=== PATIENT | female | born 1960 | race African-American/Black ===

== ENCOUNTER → 2016-08-28 | Outpatient (CLI) | payer BC ==
[~2016-08-28] MED LIST: ALPRAZOLAM PO; ANTIVERT PO; MAXZIDE 75/50 T1 TAB PO
--- NOTE | ~2016-08-28 | MY11 ---
[facility] A Service of [facility] RADIOLOGY TEXT RESULTS PATIENT: ALISSON DAVIDSON LOCATION: [facility] : 60 UNIT #: [id number] AGE: [address]: Yajaira Vo MD SEX: F ORDER DR: [id number] [address] [address] [id number] O MR#: [id number] #: [id number] NAME: ALISSON DAVIDSON : 1960 SEX: F STUDY DATE/TIME: 08/28/2016 14:20 UNIT: [facility] ROOM: STUDY DESCRIPTION: MY Mammogram Screening Dig Ryan Attending Physician: Yajaira Vo M.D. Referring Physician: Yajaira Vo M.D. Ordering Physician: Yajaira Vo M.D. Primary Care Physician: Yajaira Vo M.D. MEDICAL IMAGING REPORT This report is preliminary unless electronic signature is present. EXAM Digital screening mammogram, 08/28/2016 HISTORY 56-year-old woman positive family history, mother in her 60s, maternal grandmother in her 70s. Prior left breast biopsies x2 (same area.) Annual screening. COMPARISON Mammograms date to 10/19/2005 with most recent 02/20/2014. FINDINGS Digital imaging of each breast was completed utilizing screening protocol. Review includes FDA-approved CAD device. Breast parenchyma is moderately dense bilaterally. Subareolar duct prominence is again noted in each breast. I see no suspicious mass characteristics. Mild nodularity is noted slightly dominant in the right breast. There are no suspicious microcalcifications and no suspicious architectural deformity. IMPRESSION Benign mammogram. Annual screening recommended. Patients over the age of 40 are entered into a reminder system with target due date for the next mammogram. A result letter will also be sent to the patient. BIRADS: 2 Benign Finding Dictated by... Devon Acosta M.D. THIS IS AN ELECTRONICALLY VERIFIED REPORT Devon Acosta M.D. at 08/29/2016 8:06 AM [facility] A Service of [facility] RADIOLOGY TEXT RESULTS PATIENT: ALISSON DAVIDSON LOCATION: [facility] : 60 UNIT #: [id number] AGE: [address]: Yajaira Vo MD SEX: F ORDER DR: Harley TD: 08/28/2016 16:42 JOB #: [id number] MEDICAL IMAGING REPORT Page 1 of 1
== END | disposition home or self-care (01) ==
LOC: SMAM 13:30
DX: Z12.31 Encounter for screening mammogram for malignant neoplasm of breast (principal); Z80.3 Family history of malignant neoplasm of breast; Z98.890 Other specified postprocedural states
CPT/HCPCS: G0202